=== PATIENT | female | born 1995 | race Caucasian/White ===

== ENCOUNTER 2021-11-21 23:20 | Emergency (ER) | payer BC ==
[~2021-11-21] VITALS: Ht 167.6 cm; Wt 100.0 kg
[2021-11-22] MEDS ORDERED: ONDANSETRON HCL 4MG/2ML INJ IV STA
[2021-11-22] MEDS ORDERED: SODIUM CHLORIDE 0.9% 1,000 ML IV ONE
[2021-11-22 01:42] VITALS: BP 102/50
== END 2021-11-22 02:40 | disposition home or self-care (01) ==
LOC: ER 23:20
DX: R42 Dizziness and giddiness (principal); I95.9 Hypotension, unspecified
CPT/HCPCS: 99283; J7030